=== PATIENT | male | born 1985 | race Two or more races ===

== ENCOUNTER 2022-02-03 10:30 | Emergency (ER) | payer OTHER ==
[~2022-02-03] VITALS: Ht 165.1 cm; Wt 79.0 kg
[2022-02-03] MEDS ORDERED: NAPROSYN500 MG PO (12:44)
== END 2022-02-03 13:24 | disposition home or self-care (01) ==
LOC: FSED 11:20
DX: N45.1 Epididymitis (principal); N50.3 Cyst of epididymis; F17.200 Nicotine dependence, unspecified, uncomplicated
CPT/HCPCS: 76870; 81003; 99283